=== PATIENT | female | born 1970 | race Two or more races ===

== ENCOUNTER 2021-06-14 07:21 | Outpatient (CLI) | payer OTHER | END 2021-06-14 07:33 | disposition home or self-care (01) | LOC: MRI 07:21 | PROVIDERS: ATTEND Internal Medicine | DX: M54.2 Cervicalgia (principal) | CPT/HCPCS: 72141 ==

== ENCOUNTER 2021-06-14 08:47 | Emergency (ER) | payer OTHER ==
[~2021-06-14] VITALS: Ht 154.9 cm; Wt 68.9 kg
== END 2021-06-14 15:57 | disposition home or self-care (01) ==
LOC: ER 08:47
DX: G51.0 Bell's palsy (principal); I10 Essential (primary) hypertension

== ENCOUNTER 2021-11-23 11:01 | Emergency (ER) | payer OTHER ==
[~2021-11-23] VITALS: Ht 154.9 cm; Wt 68.0 kg
[2021-11-23] MEDS ORDERED: NEURONTIN300 MG PO (11:23)
== END 2021-11-23 15:00 | disposition home or self-care (01) ==
LOC: ER 11:01
DX: M54.50 Low back pain, unspecified (principal); Z88.8 Allergy status to other drugs, medicaments and biological substances

== ENCOUNTER 2022-10-02 11:48 | Outpatient (CLI) | payer OTHER ==
[~2022-10-02 11:48] MED LIST: NEURONTIN300 MG PO
== END 2022-10-02 11:49 | disposition home or self-care (01) ==
LOC: NUCLEAR 11:48
PROVIDERS: ATTEND Internal Medicine
DX: K21.9 Gastro-esophageal reflux disease without esophagitis (principal); R10.13 Epigastric pain; R11.2 Nausea with vomiting, unspecified
CPT/HCPCS: 78227; A9537; J2805

== ENCOUNTER → 2023-08-10 | Emergency (ER) | payer OTHER ==
[~2023-08-10] VITALS: Ht 154.9 cm; Wt 68.0 kg
[~2023-08-10] MED LIST changes: +CHLORTHALIDONE25 MG; +COZAAR25 MG
== END | disposition left against medical advice (07) ==
LOC: ER 19:26
DX: Z53.21 Procedure and treatment not carried out due to patient leaving prior to being seen by health care provider (principal)

== ENCOUNTER 2024-08-20 11:17 | Emergency (ER) | payer OTHER ==
[~2024-08-20] VITALS: Ht 154.9 cm; Wt 70.8 kg
[2024-08-20] MEDS ORDERED: DEXAMETHASONE SODIUM PHOSPHATE 4 MG/ML VIAL IM STA (13:23)
[2024-08-20] MEDS ORDERED: CODEINE PHOSPHATE/GUAIFENESIN 5 ML ML PO STA (13:23)
[2024-08-20] MEDS ORDERED: ACETAMINOPHEN 500 MG GEL..CAP PO STA (13:23)
[2024-08-20 13:58] LABS: HEMATOCRIT 37.8 % (36.0-45.00); HEMOGLOBIN 12.8 g/dL (12.0-15.00); MEAN CELL VOLUME 92.5 fL (80.00-100.00); MEAN CORPUSCULAR HEMOGLOBIN 31.4 pg (27.00-32.0); MEAN CORPUSCULAR HGB CONC 33.9 g/dl (32.0-36.0); PLATELET COUNT 304 K/uL (150-450); RED BLOOD COUNT 4.09 M/uL (4.00-6.00); RED CELL DISTRIBUTION WIDTH 14.9 % (11.5-14.5)
[2024-08-20] MEDS ORDERED: ZYRTEC10 M3 PO (15:04)
[2024-08-20] MEDS ORDERED: MEDROLPACK PO (15:04)
[2024-08-20] MEDS ORDERED: MUCINEX DM ER1 EAC1 PO (15:07)
[2024-08-20] MEDS ORDERED: ZITHROMAX500 MG PO (15:07)
== END 2024-08-20 15:44 | disposition home or self-care (01) ==
LOC: ER 11:19
PROVIDERS: General Practice
DX: J06.9 Acute upper respiratory infection, unspecified (principal); Z88.8 Allergy status to other drugs, medicaments and biological substances; I10 Essential (primary) hypertension; J40 Bronchitis, not specified as acute or chronic

== ENCOUNTER 2024-09-18 10:08 | Emergency (ER) | payer OTHER ==
[~2024-09-18] VITALS: Ht 154.9 cm; Wt 68.0 kg
[~2024-09-18 10:08] MED LIST changes: +MEDROLPACK PO; +MUCINEX DM ER1 EAC1 PO; +ZITHROMAX500 MG PO; +ZYRTEC10 M3 PO
[2024-09-18] MEDS ORDERED: GUAIFENESIN 200 MG/10 ML BLIST.PACK PO ONE ×2 (10:49→11:00)
[2024-09-18] MEDS ORDERED: ACETAMINOPHEN 500 MG GEL..CAP PO ONE ×2 (10:49→11:00)
== END 2024-09-18 12:28 | disposition home or self-care (01) ==
LOC: ER 10:09
DX: B34.9 Viral infection, unspecified (principal); Z20.822 Contact with and (suspected) exposure to COVID-19; I10 Essential (primary) hypertension; Z88.8 Allergy status to other drugs, medicaments and biological substances